=== PATIENT | male | born 1980 | race American Indian/Alaskan Native ===

== ENCOUNTER 2017-05-09 15:11 | Emergency (ER) | payer SELFPAY ==
--- NOTE | 2017-05-09 19:35 | Emergency Department Report ---
ED ENT HPI - General Chief complaint: Earache Stated complaint: LEFT EAR RINGING/LEAKING FLUID Time Seen by Provider: 05/09/17 19:04 Source: patient Mode of arrival: Ambulatory Limitations: No Limitations - History of Present Illness Initial comments: Patient here complaining of earache and drainage and decreased hearing since yesterday. Denies any fever or chills. Denies any trauma. Pain is located into his left ear and it stayed at a 10 and a can. He reports that he is having some ringing in. Denies any cough in, wheezing. Denies any shortness of breath. Denies any sore throat or nasal congestion. MD complaint: ear pain Onset/Timin -: days(s) Location: L ear Severity: severe Severity scale (0 -10): 8 Quality: aching, constant Consistency: constant Improves with: none Worsens with: none Context- Ear: other (none) Associated Symptoms: tinnitus, hearing loss, discharge from ear. denies: fever , cough, gum swelling, toothache, pain with swallowing, sore throat, rhinorrhea - Related Data Previous Rx's Medication Instructions Recorded Last Taken Type Amoxicillin [Amoxicillin TAB] 875 mg PO BID #20 tablet 05/09/17 Unknown Rx Ibuprofen [Motrin] 600 mg PO Q8H PRN #15 tablet 05/09/17 Unknown Rx Allergies Allergy/AdvReac Type Severity Reaction Status Date / Time No Known Allergies Allergy Unverified 05/09/17 17:42 ED Dental HPI - General Chief complaint: Earache Stated complaint: LEFT EAR RINGING/LEAKING FLUID Time Seen by Provider: 05/09/17 19:04 Source: patient Mode of arrival: Ambulatory Limitations: No Limitations - Related Data Previous Rx's Medication Instructions Recorded Last Taken Type Amoxicillin [Amoxicillin TAB] 875 mg PO BID #20 tablet 05/09/17 Unknown Rx Ibuprofen [Motrin] 600 mg PO Q8H PRN #15 tablet 05/09/17 Unknown Rx Allergies Allergy/AdvReac Type Severity Reaction Status Date / Time No Known Allergies Allergy Unverified 05/09/17 17:42 ED Review of Systems ROS: Stated complaint: LEFT EAR RINGING/LEAKING FLUID Other details as noted in HPI Comment: All other systems reviewed and negative Constitutional: denies: chills, fever Eyes: denies: eye pain, eye discharge ENT: ear pain, hearing loss. denies: throat pain, dental pain, congestion Respiratory: no symptoms reported Cardiovascular: denies: chest pain, palpitations, edema, syncope Gastrointestinal: denies: abdominal pain, nausea, vomiting, diarrhea, constipation Musculoskeletal: denies: back pain, joint swelling, arthralgia, myalgia Skin: denies: rash Neurological: denies: headache, weakness, numbness, paresthesias, confusion, abnormal gait, vertigo ED Past Medical Hx - Past Medical History Previous Medical History?: No - Surgical History Past Surgical History?: Yes Additional Surgical History: cleft palate - Family History Family history: no significant - Social History Smoking Status: Current Every Day Smoker Substance Use Type: None - Medications Home Medications: Home Medications Medication Instructions Recorded Confirmed Last Taken Type Amoxicillin [Amoxicillin TAB] 875 mg PO BID #20 tablet 05/09/17 Unknown Rx Ibuprofen [Motrin] 600 mg PO Q8H PRN #15 tablet 05/09/17 Unknown Rx ED Physical Exam - General Limitations: No Limitations General appearance: alert, in no apparent distress - Head Head exam: Present: atraumatic, normocephalic, normal inspection - Eye Eye exam: Present: normal appearance, PERRL, EOMI. Absent: conjunctival injection, periorbital swelling, periorbital tenderness Pupils: Present: normal accommodation - ENT ENT exam: Present: normal exam, normal orophraynx, mucous membranes moist, normal external ear exam, other (nasal mucosa normal, no drainage. Bilateral frontal and maxillary sinuses nontender to palpate). Absent: TM's normal bilaterally (left TM ruptured. Patient able to hear from a distance. scant drainage noted. Mastoid bone nontender to palpate bilaterally) - Neck Neck exam: Present: normal inspection, tenderness, full ROM. Absent: meningismus, lymphadenopathy - Respiratory Respiratory exam: Present: normal lung sounds bilaterally. Absent: respiratory distress, chest wall tenderness - Cardiovascular Cardiovascular Exam: Present: regular rate, normal rhythm, normal heart sounds - GI/Abdominal GI/Abdominal exam: Present: soft, normal bowel sounds. Absent: distended, tenderness, guarding, rebound, rigid - Extremities Exam Extremities exam: Present: normal inspection, full ROM, normal capillary refill. Absent: tenderness, pedal edema, joint swelling, calf tenderness - Back Exam Back exam: Present: normal inspection, full ROM. Absent: tenderness, CVA tenderness (R), CVA tenderness (L), muscle spasm, paraspinal tenderness, vertebral tenderness, rash noted - Neurological Exam Neurological exam: Present: alert, oriented X3, normal gait, reflexes normal. Absent: motor sensory deficit - Psychiatric Psychiatric exam: Present: normal affect, normal mood - Skin Skin exam: Present: warm, dry, intact, normal color. Absent: rash ED Course Vital Signs 05/09/17 17:43 Temperature 98.3 F Pulse Rate 71 Respiratory 18 Rate Blood Pressure 123/80 O2 Sat by Pulse 100 Oximetry - Reevaluation(s) Reevaluation #1: 05/09/17 20:15 Patient stable throughout ED course ED Medical Decision Making - Medical Decision Making ED course: Patient here complaining of left ear pain and ringing in with drainage from her ear started yesterday. He denies any trauma to his left ear. Fever or chills. Does not have any respiratory symptoms. Physical findings for left TM rupture. Diagnosis and treatment plan explained to patient. I discussed with him that sometimes tympanic membrane will heal itself and this could take a month but he might have to follow-up with ear nose and throat for repeat or if this does not happen and he continues to have ringing in his ears. Assessment/plan 1. Spontaneous rupture left tympanic membrane 2. Left otalgia 3. Tinnitus Patient referred to ear nose and throat doctor Prescription for amoxicillin and Motrin Critical care attestation.: If time is entered above; I have spent that time in minutes in the direct care of this critically ill patient, excluding procedure time. ED Disposition Clinical Impression: Otalgia, left ear, Tinnitus of left ear Ruptured tympanic membrane Qualifiers: Laterality: left Qualified Code(s): H72.92 - Unspecified perforation of tympanic membrane, left ear Disposition: DC-01 TO HOME OR SELFCARE Is pt being admited?: No Does the pt Need Aspirin: No Condition: Stable Instructions: Ruptured Eardrum (ED), Earache (ED), Tympanoplasty (GEN) Additional Instructions: Please follow up with ENT as recommended Take Antibiotic as prescribed Motrin will help her pain Prescriptions: Amoxicillin [Amoxicillin TAB] 875 mg PO BID #20 tablet Ibuprofen [Motrin] 600 mg PO Q8H PRN #15 tablet PRN Reason: Pain Referrals: ABHI KELLEY MD [Staff Physician] - 05/11/17 [facility] [Outside] - 05/11/17 Forms: Work/School Release Form(ED)
[2017-05-09 20:20] VITALS: BP 132/86
== END 2017-05-09 20:38 | disposition home or self-care (01) ==
LOC: ED 15:11
DX: H72.92 Unspecified perforation of tympanic membrane, left ear (principal); F17.210 Nicotine dependence, cigarettes, uncomplicated
CPT/HCPCS: 99282

== ENCOUNTER 2017-12-04 20:58 | Emergency (ER) | payer OTHER ==
--- NOTE | 2017-12-04 23:13 | XRay Report ---
FINAL REPORT PROCEDURE: Right rib series and PA chest x-ray TECHNIQUE: RIGHT rib radiographs, 3 views of the ribs, including PA chest. HISTORY: rib pain COMPARISON: No prior studies are available for comparison. FINDINGS: Heart size and pulmonary vasculature appear normal. The lungs are clear. No infiltrates masses or effusions are identified. No evidence of pneumothorax. There is mild irregularity at the interface between the rib cartilage and anterior aspect of the right 10th rib. Correlation with physical exam recommended to exclude a fracture this location. Irregularity may be due to normal variation related to the cartilage rib interface. IMPRESSION: Mild irregularity anterior aspect right 10th rib as described may represent normal variant related to cartilage and bony rib interface. I cannot exclude a fracture. Correlation with physical exam recommended. No other abnormalities are identified.
--- NOTE | 2017-12-04 23:19 | XRay Report ---
FINAL REPORT EXAM: XR SPINE LUMBOSACRAL 2-3V HISTORY: Back pain TECHNIQUE: 2 views of the lumbar spine: AP and lateral projections PRIORS: None. FINDINGS: Convex left lumbar curvature is noted apex at L2-L3. Sagittal alignment is normal. There is no spondylolysis or spondylolisthesis. Vertebral body heights are preserved. No significant endplate degenerative change or intervertebral disc height loss. IMPRESSION: 1. No acute osseous abnormalities. 2. Mild convex left curvature, no significant degenerative change noted.
[2017-12-05] MEDS ORDERED: MOTRIN PO ONE (02:01)
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
[2017-12-05 02:26] VITALS: BP 119/74
== END 2017-12-05 02:31 | disposition home or self-care (01) ==
LOC: ED 20:58
DX: S20.211A Contusion of right front wall of thorax, initial encounter (principal); F17.200 Nicotine dependence, unspecified, uncomplicated; V49.49XA Driver injured in collision with other motor vehicles in traffic accident, initial encounter; Y93.89 Activity, other specified; Y92.89 Other specified places as the place of occurrence of the external cause; Y99.8 Other external cause status
CPT/HCPCS: 72100; 99283

== ENCOUNTER 2019-08-20 18:50 | Emergency (ER) | payer OTHER ==
[2019-08-20 19:16] VITALS: BP 126/82
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
--- NOTE | 2019-08-20 21:46 | XRay Report ---
RIGHT RIBS PLUS CHEST 4 VIEWS INDICATION / CLINICAL INFORMATION: right rib pain COMPARISON: Right rib series from 12/04/2017. FINDINGS: BONES and JOINT(S): No acute fracture or subluxation. No significant arthritis. SOFT TISSUES: No significant abnormality. ADDITIONAL FINDINGS: None. IMPRESSION: No significant abnormality of the right ribs. Signer Name: Rodney Belle MD Signed: 08/20/2019 9:41 PM Workstation Name: [id number]
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
== END 2019-08-20 23:00 | disposition home or self-care (01) ==
LOC: ED 18:50
DX: S06.0X0A Concussion without loss of consciousness, initial encounter (principal); S20.211A Contusion of right front wall of thorax, initial encounter; F12.10 Cannabis abuse, uncomplicated; Z79.899 Other long term (current) drug therapy; V49.49XA Driver injured in collision with other motor vehicles in traffic accident, initial encounter; Y93.89 Activity, other specified; Y92.89 Other specified places as the place of occurrence of the external cause; Y99.8 Other external cause status
CPT/HCPCS: 70450